=== PATIENT | female | born 1940 | race Caucasian/White ===

== ENCOUNTER 2018-01-15 12:35 | Emergency (ER) | payer MEDICARE ==
[~2018-01-15] VITALS: Ht 160 cm; Wt 58.0 kg
[2018-01-15 12:39] VITALS: BP 171/85; PULSE 70; RESP 16; TEMP 97.5; O2SAT 96
[2018-01-15] MEDS ORDERED: TRIH2 PO (13:21)
[2018-01-15] MEDS ORDERED: ADVA100A INH (13:21)
[2018-01-15] MEDS ORDERED: ALBUAER3 INH (13:21)
[2018-01-15] MEDS ORDERED: DIGO0.12 PO (13:21)
[2018-01-15] MEDS ORDERED: WARF-18 PO (13:21)
[2018-01-15] MEDS ORDERED: ROSU10 PO (13:21)
[2018-01-15] MEDS ORDERED: MONT10TA4 PO (13:21)
[2018-01-15] MEDS ORDERED: VITA1000 PO (13:21)
--- NOTE | 2018-01-15 13:22 | PD ---
HPI Chief Complaint: Bite or Sting Time Seen by Provider: 13:04 Travel History International Travel<30 days: No Contact w/Intl Traveler<30days: No Traveled to known affect area: No History of Present Illness HPI 77-year-old female presents to the emergency department for evaluation of left thumb pain that started yesterday. She states that she was bit by something and thinks it was a scorpion. However, she did not see the scorpion. The patient reports localized pain to her left thumb, worse with movement. Patient states she has associated nausea, but no vomiting. She denies any fevers or chills. No abdominal pain. She ate toast and a bagel for breakfast with coffee was no issue. Patient states it hurts to move her thumb. She has no erythema or swelling. Mild severity. She states her tetanus immunization is not up-to-date. PFSH Past Medical History Hx Anticoagulant Therapy: Yes (WARFARIN) Asthma: Yes Atrial Fibrillation: Yes Cardiovascular Problems: Yes (A. FIB, CHOL) High Cholesterol: Yes Diabetes: No Neurologic: Yes (tremors) Respiratory: Yes (ASTHMA) ?: Not Past Surgical History Tonsillectomy: Yes Other Surgery: Yes (skin ca removed) Social History Alcohol Use: No Tobacco Use: No Substance Use: No Allergies-Medications (Allergen,Severity, Reaction): Coded Allergies: iodine (Verified Allergy, Severe, 01/15/18) Review of Systems Except as stated in HPI: all other systems reviewed are Neg Physical Exam Narrative GENERAL: Well-nourished, well-developed female patient, afebrile. SKIN: Focused skin assessment warm/dry. No noticeable injury to left thumb. No erythema or swelling. She has full active and passive range of motion of the left thumb. HEAD: Normocephalic. Atraumatic. EYES: No scleral icterus. No injection or drainage. NECK: Supple, trachea midline. No JVD or lymphadenopathy. CARDIOVASCULAR: Regular rate and rhythm without murmurs, gallops, or rubs. RESPIRATORY: Breath sounds equal bilaterally. No accessory muscle use. Lungs sounds are clear to auscultation. GASTROINTESTINAL: Abdomen soft, non-tender, nondistended. MUSCULOSKELETAL: No cyanosis, or edema. BACK: Nontender without obvious deformity. No CVA tenderness. Data Data Last Documented VS Vital Signs Date Time Temp Pulse Resp B/P (MAP) Pulse Ox O2 Delivery O2 Flow Rate FiO2 01/15/18 12:39 97.5 70 16 171/85 (113) 96 Orders Orders Tetanus/Diphtheria Tox Adult (Tetanus/Di (01/15/18 13:30) MDM Medical Decision Making Medical Screen Exam Complete: Yes Emergency Medical Condition: Yes Medical Record Reviewed: Yes Differential Diagnosis Insect bite versus scorpion sting versus thumb sprain Narrative Course 77-year-old female presents to the emergency department stating she believes she was done by a scorpion to her left thumb. Patient appears well on exam. No evidence of infection. She has full range of motion of the left thumb. She denies any injury. Her tetanus immunization is updated. Patient started taking [id number] Tylenol and ice it for pain. She is to follow-up with a primary care physician or return here for any acute worsening of symptoms. The patient was discharged in stable condition with instructions, including return instructions and follow up instructions. Diagnosis Primary Impression: Insect bite hand Qualified Codes: S60.562A - Insect bite (nonvenomous) of left hand, initial encounter; W57.XXXA - Bitten or stung by nonvenomous insect and other nonvenomous arthropods, initial encounter Referrals: Primary Care Physician call for appointment Patient Instructions: General Instructions, Insect Bite or Sting (ED) Additional Instructions: [id number] Tylenol every 4 hours as needed for pain. Ice for 20 minutes 4-5 times daily. Follow-up with your primary care physician. Return to the emergency department for any acute worsening of symptoms. Med/Other Pt SpecificInfo: No Change to Meds Disposition: 01 DISCHARGE HOME Condition: Stable Jaylin Menendez Jan 15, 2018 13:22
[2018-01-15] MEDS ORDERED: TETANUS/DIPHTHERIA TOXOID ADULT 0.5 ML VIAL IM ONE (13:30)
[2018-01-15] MEDS ORDERED: ONDA4TAB7 SL (13:55)
== END 2018-01-15 13:51 | disposition home or self-care (01) ==
LOC: PHEFT 12:35
DX: S60.562A Insect bite (nonvenomous) of left hand, initial encounter (principal); R11.0 Nausea; I48.91 Unspecified atrial fibrillation; E78.00 Pure hypercholesterolemia, unspecified; Z23 Encounter for immunization; Z79.01 Long term (current) use of anticoagulants; Z87.09 Personal history of other diseases of the respiratory system; Z86.69 Personal history of other diseases of the nervous system and sense organs; W57.XXXA Bitten or stung by nonvenomous insect and other nonvenomous arthropods, initial encounter
CPT/HCPCS: 90471; 90714